=== PATIENT | female | born 1990 | race Caucasian/White ===

== ENCOUNTER 2020-10-30 10:51 | Outpatient (REF) | payer OTHER, SELFPAY | END 2020-10-30 10:52 | disposition home or self-care (01) | LOC: HO.WFDLDS 10:51 | PROVIDERS: Visit Provider Internal Medicine | DX: Z20.822 Contact with and (suspected) exposure to COVID-19 (principal) | CPT/HCPCS: C9803; U0003; U0005 ==

== ENCOUNTER 2022-07-19 09:03 | Emergency (ER) | payer OTHER, SELFPAY ==
[2022-07-19 09:10] VITALS: BP 134/91; PULSE 96; RESP 18; TEMP 35.8; O2SAT 99; BMI 34.5
--- NOTE | 2022-07-19 09:25 | ED_ITS ---
HPI - General Adult General Chief complaint: General Medical Stated complaint: Strep throat Time Seen by Provider: 07/19/22 09:23 Source: patient Mode of arrival: ambulatory Limitations: no limitations History of Present Illness HPI narrative: Patient is a 32 year old assigned female at with no reported medical history presenting to the emergency department today with a sore throat. Patient states that since last night she has had a sore throat. Patient denies any dizziness, lightheadedness, abdominal pain, nausea, vomiting, fever, chills, blurry vision, double vision, loss of vision, chest pain, difficulty breathing, shortness of breath, back pain, night sweats, pain with urination, increased urinary frequency, increased urinary urgency, blood in her urine or stool, syncope or a near syncopal episode, recent trauma or falls, bowel incontinence, bladder incontinence, bowel retention, bladder retention, or any other complaints at this time. Onset (ago): day(s) (1) Severity: mild Severity scale (1-10): 2 Relieving factors: none Exacerbating factors: none Associated symptoms: denies other symptoms Treatments prior to arrival: none Related Data Previous Rx's Medication Instructions Recorded penicillin V potassium 500 mg 500 mg PO BID 10 days #20 tabs 07/19/22 tablet Allergies Allergy/AdvReac Type Severity Reaction Status Date / Time No Known Allergies Allergy Verified 07/19/22 09:09 Review of Systems Constitutional: Constitutional: Reports no additional constitutional complaints, Denies chills, Denies fever(s) and Denies night sweats Eyes: Eyes: Reports no additional eye complaints, Denies blurry vision, Denies change in vision, Denies diplopia, Denies eye discharge, Denies loss of vision and Denies eye pain ENT: Denies dizziness and Reports sore throat Cardiovascular: Cardiovascular: Reports no additional cardiovascular complaints, Denies chest pain, Denies lightheadedness, Denies Loss of Consciousness and Denies dyspnea Respiratory: Respiratory: Reports no additional respiratory complaints and Denies dyspnea Gastrointestinal: Gastrointestinal: Reports no additional gastrointestinal complaints, Denies abdominal pain, Denies melena, Denies hematochezia, Denies change in bowel habits and Denies change in stool character Genitourinary: Genitourinary: Denies hematuria, Denies urinary frequency, Denies dysuria, Denies urinary incontinence, Denies urinary hesitancy and Denies urinary urgency Musculoskeletal: Musculoskeletal: Reports no additional musculoskeletal complaints, Denies numbness and Denies tingling Neurologic: Denies dizziness, Denies loss of vision, Denies numbness and Denies tingling Psychiatric: Psychiatric: Reports no additional psychiatric complaints Endocrine: Endocrine: Reports no additional endocrine complaints Hematologic/Lymphatic: Hematologic/Lymphatic: Reports no additional hematologic/lymphatic complaints Allergic/Immunologic: Allergic/Immunologic: Reports no additional allergic/immunologic complaints PMFSH Past Medical History Attestation statement: The following information was validated with the patient. Source: old records reviewed and nursing notes reviewed Social History Social History Advance Directives: No Advance Directives Information Provided: No Physical Exam ED Vital Signs: Vital Signs - 24 hr 07/19/22 09:10 Temperature 96.4 F L Pulse Rate 96 Respiratory Rate 18 Blood Pressure 134/91 H Pulse Oximetry 99 Oxygen Delivery Method Room Air BMI result Body Mass Index 34.5 Const General: cooperative, no acute distress, alert and awake Nutritional Appearance: well nourished Orientation/consciousness: patient oriented x3 Limitations: no limitations HENMT Head: Yes normal to inspection and Yes atraumatic Ears: hearing grossly normal bilaterally and external ears normal General nose exam: Normal external nose present, no nasal discharge noted and no epistaxis Face and sinus: Yes normal facial exam, No abrasion and No laceration Mouth: Normal oral and palatal mucosa present, no drooling and no muffled voice Throat: Yes posterior oropharynx abnormal (erythema) Eyes General: appearance normal, both eyes and all related structures Periorbital: periorbital findings normal Eyelids: Yes eyelids normal Conjunctivae: conjunctivae normal Pupils: Equal, round and reactive pupils present EOM: EOMs intact bilaterally Neck Neck: Yes normal visual inspection, Yes full ROM and Yes no lymphadenopathy Chest Chest palpation & inspection: normal inspection of the chest Resp Effort & Inspection: normal respiratory effort and able to speak in complete sentences GI Inspection: Yes normal to inspection Neuro General: patient oriented x3 and moves all extremities Cranial nerves: Yes Equal, round and reactive pupils present Cognition (Neuro): normal cognition Motor exam (neuro): 5/5 motor strength present throughout Sensory Exam: Normal double simultaneous stimulation for sensation Coordination: [id number] test normal Extrem General: Yes normal to inspection, Yes full ROM and Yes capillary refill normal Psych Appearance: grossly normal Mental Status: mental status grossly normal Affect: normal affect Attitude: cooperative Thought process: Normal thought process present Thought content: Normal thought content present Insight: Good insight present (Psych) Medical Decision Making Medical Decision Making [facility] Narrative: Patient is a 32 year old assigned female at with no reported medical history presenting to the emergency department today with a sore throat. Patient's physical exam showed posterior pharynx erythema. Patient's strep test was positive. I explained my physical exam findings as well as all test results to the patient. I answered all questions asked by the patient. I stressed the importance of the patient taking her medication as prescribed. I stressed the importance of the patient following up with her primary care provider. I stressed the importance of the patient returning to the emergency department i mmediately if her symptoms were to worsen or if she were to develop any dizziness, shortness of breath, difficulty breathing, chest pain, blurry vision, loss of vision, nausea, vomiting, abdominal pain, fever, chills, back pain, or any other complaints. Patient verbalized agreement and understanding with this treatment plan and discharge. Differential Diagnosis Differential Diagnoses: The differential diagnosis associated with the presentation includes strep pharyngitis Lab Data [facility] Lab Attestation statement: I reviewed the patient's lab results. Labs: Lab Results 07/19/22 07/19/22 Range/Units 09:18 09:18 COVID-19 ([place]) Negative (Negative) COVID-19 Clin Com See Note S. pyogenes GrpA DOTTY Positive A (Negative) Discharge Plan Discharge Clinical Impression: Strep pharyngitis Patient Disposition: Home, Self-Care Instructions: Strep Throat (DC) Additional Instructions: Follow up with your primary care provider. Return to the emergency department immediately if your symptoms worsen or if you develop any dizziness, shortness of breath, difficulty breathing, chest pain, blurry vision, loss of vision, nausea, vomiting, abdominal pain, fever, chills, back pain, or any other complaints. Prescriptions: New penicillin V potassium 500 mg tablet 500 mg PO BID 10 Days Qty: 20 0RF [place]: [facility] [place] (Call to establish and follow up with a primary care provider. If you already have a primary care provider, please follow up with them.) [facility] [place] [facility] [place] [facility]] (Call to establish and follow up with a primary care provider. If you already have a primary care provider, please follow up with them.) [facility] [Provider Group] (Call to establish and follow up with a primary care provider. If you already have a primary care provider, please follow up with them.) Stand Alone Forms: Work/School Release Interventions: ED Discharge Assessment Last Done: 07/19/22 10:11 Discharge Date/Time: 07/19/22 10:11 Print Language: American
[2022-07-19 09:50] LABS: COVID-19 Test Negative (Negative); IDNOW Serial# 55D5AD1C; IDNOW Serial# 6674DD1D; Strep A Nucleic Acid Positive (Negative)
== END 2022-07-19 10:11 | disposition home or self-care (01) ==
PROVIDERS: Emergency Provider Emergency Medicine
DX: J02.0 Streptococcal pharyngitis (principal); Z20.822 Contact with and (suspected) exposure to COVID-19; Z20.828 Contact with and (suspected) exposure to other viral communicable diseases; Z79.899 Other long term (current) drug therapy
CPT/HCPCS: 87635; 87651; 99282; 99283

== ENCOUNTER 2023-08-03 08:48 | Emergency (ER) | payer SELFPAY ==
[2023-08-03 09:03] VITALS: BP 151/86; PULSE 106; RESP 16; TEMP 36.9; O2SAT 97; BMI 34.5
--- NOTE | 2023-08-03 09:10 | ED_ITS ---
HPI - General Adult General Chief complaint: General Medical Stated complaint: Sore throat Time Seen by Provider: 08/03/23 09:10 Source: patient Mode of arrival: ambulatory Limitations: no limitations History of Present Illness HPI narrative: Patient is a 33 year old assigned female at with no reported medical history presenting to the emergency department today with a sore throat and body aches. Patient states that over the last 36 hours she has had a sore throat and body aches. Patient denies any dizziness, lightheadedness, abdominal pain, nausea, vomiting, fever, chills, blurry vision, double vision, loss of vision, chest pain, difficulty breathing, shortness of breath, back pain, night sweats, pain with urination, increased urinary frequency, increased urinary urgency, blood in her urine or stool, syncope or a near syncopal episode, recent trauma or falls, bowel incontinence, bladder incontinence, bowel retention, bladder retention, or any other complaints at this time. Onset (ago): day(s) (2) Severity: mild Severity scale (1-10): 3 Relieving factors: none Exacerbating factors: none Associated symptoms: denies other symptoms Treatments prior to arrival: none Related Data Previous Rx's ?Medication ?Instructions ?Recorded penicillin V potassium 500 mg 500 mg PO BID 10 days #20 tabs 07/19/22 tablet penicillin V potassium 500 mg 500 mg PO BID 10 days #20 tabs 08/03/23 tablet Allergies Allergy/AdvReac Type Severity Reaction Status Date / Time No Known Allergies Allergy Verified 08/03/23 09:04 Review of Systems Constitutional: Constitutional: Reports no additional constitutional complaints, Reports body ache(s), Denies chills, Denies fever(s) and Denies night sweats Eyes: Eyes: Reports no additional eye complaints, Denies blurry vision, Denies change in vision, Denies diplopia, Denies eye discharge, Denies loss of vision and Denies eye pain ENT: Denies dizziness and Reports sore throat Cardiovascular: Cardiovascular: Reports no additional cardiovascular complaints, Denies chest pain, Denies lightheadedness, Denies Loss of Consciousness and Denies dyspnea Respiratory: Respiratory: Reports no additional respiratory complaints and Denies dyspnea Gastrointestinal: Gastrointestinal: Reports no additional gastrointestinal complaints, Denies abdominal pain, Denies melena, Denies hematochezia, Denies change in bowel habits and Denies change in stool character Genitourinary: Genitourinary: Denies hematuria, Denies urinary frequency, Denies dysuria, Denies urinary incontinence, Denies urinary hesitancy and Denies urinary urgency Musculoskeletal: Musculoskeletal: Reports no additional musculoskeletal complaints, Denies numbness and Denies tingling Neurologic: Denies dizziness, Denies loss of vision, Denies numbness and Denies tingling Psychiatric: Psychiatric: Reports no additional psychiatric complaints Endocrine: Endocrine: Reports no additional endocrine complaints Hematologic/Lymphatic: Hematologic/Lymphatic: Reports no additional hematologic/lymphatic complaints Allergic/Immunologic: Allergic/Immunologic: Reports no additional allergic/immunologic complaints [facility] Past Medical History Attestation statement: The following information was validated with the patient. Source: old records reviewed and nursing notes reviewed Social History Social History Advance Directives: No Advance Directives Information Provided: No Physical Exam ED Vital Signs: Vital Signs - 24 hr 08/03/23 09:03 08/03/23 10:25 Temperature 98.5 F 98.5 F Pulse Rate 106 H 106 H Respiratory Rate 16 16 Blood Pressure 151/86 H 151/86 H Pulse Oximetry 97 97 Oxygen Delivery Method Room Air Room Air BMI result Body Mass Index 34.5 Const General: cooperative, no acute distress, alert and awake Nutritional Appearance: well nourished Orientation/consciousness: patient oriented x3 Limitations: no limitations HENCA Head: Yes normal to inspection and Yes atraumatic Ears: hearing grossly normal bilaterally and external ears normal General nose exam: Normal external nose present, no nasal discharge noted and no epistaxis Face and sinus: Yes normal facial exam, No abrasion and No laceration Mouth: Normal oral and palatal mucosa present, no drooling and no muffled voice Throat: Yes abnormal tonsil (bilateral erythema and exudates) Eyes General: appearance normal, both eyes and all related structures Periorbital: periorbital findings normal Eyelids: Yes eyelids normal Conjunctivae: conjunctivae normal Pupils: Equal, round and reactive pupils present EOM: EOMs intact bilaterally Neck Neck: Yes normal visual inspection, Yes full ROM and Yes no lymphadenopathy Chest Chest palpation & inspection: normal inspection of the chest Resp Effort & Inspection: normal respiratory effort and able to speak in complete sentences GI Inspection: Yes normal to inspection Neuro General: patient oriented x3 and moves all extremities Cranial nerves: Yes Equal, round and reactive pupils present Cognition (Neuro): normal cognition Motor exam (neuro): 5/5 motor strength present throughout Sensory Exam: Normal double simultaneous stimulation for sensation Coordination: [id number] test normal Extrem General: Yes normal to inspection, Yes full ROM and Yes capillary refill normal Psych Appearance: grossly normal Mental Status: mental status grossly normal Affect: normal affect Attitude: cooperative Thought process: Normal thought process present Thought content: Normal thought content present Insight: Good insight present (Psych) Medical Decision Making Medical Decision Making [facility] Narrative: Patient is a 33 year old assigned female at with no reported medical history presenting to the emergency department today with a sore throat and body aches. Patient's physical exam was as noted in the physical exam portion of this note. Patient's COVID-19, influenza, and RSV tests were negative. Patient's strep test was positive. I explained my physical exam findings as well as all test results to the patient. I answered all questions asked by the patient. I stressed the importance of the patient taking her medication as prescribed. I stressed the importance of the patient following up with her primary care provider. I stressed the importance of the patient returning to the emergency department immediately if her symptoms were to worsen or if she were to develop any dizziness, shortness of breath, difficulty breathing, chest pain, blurry vision, loss of vision, nausea, vomiting, abdominal pain, fever, chills, back pain, or any other complaints. Patient verbalized agreement and understanding wi th this treatment plan and discharge. Differential Diagnosis Differential Diagnoses: The differential diagnosis associated with the present ation includes Strep pharyngitis COVID-19 Influenza RSV Pharyngitis Admission/Observation Consideration of admission/observation: Escalation of care including admission/observation considered Patient would have been admitted to the hospital had her work up had any findings where hospital admission was appropriate and her clinical presentation warranted hospital admission. Lab Data [facility] Lab Attestation statement: I reviewed the patient's lab results. My interpretation of these results are in the MDM Rationale portion of this note. Labs: Lab Results 08/03/23 Range/Units 09:23 Influenza Type A (PCR) NEGATIVE (Negative) Influenza Type B (PCR) NEGATIVE (Negative) RSV RNA Qual (PCR) NEGATIVE (Negative) SARS-CoV-2 RNA (RT-PCR) NEGATIVE (Negative) S. pyogenes GrpA DOTTY Positive A (Negative) Prescription Management I considered prescription management with: Antibiotic (patient prescribed an antibiotic for strep pharyngitis) Discharge Plan Discharge Clinical Impression: Strep pharyngitis Patient Disposition: Home, Self-Care Instructions: Strep Throat (DC) Additional Instructions: Follow up with your primary care provider. Return to the emergency department immediately if your symptoms worsen or if you develop any dizziness, shortness of breath, difficulty breathing, chest pain, blurry vision, loss of vision, nausea, vomiting, abdominal pain, fever, chills, back pain, or any other complaints. Prescriptions: New penicillin V potassium 500 mg tablet 500 mg PO BID 10 Days Qty: 20 0RF No Action penicillin V potassium 500 mg tablet 500 mg PO BID 10 Days Qty: 20 0RF Referrals: [facility] [place] [facility] [Provider Group] (Call to establish and follow up with a primary care provider. If you already have a primary care provider, please follow up with them.) [facility] [place] [facility] [Provider Group] [facility] [place] [facility] [Provider Group] Stand Alone Forms: Work/School Release Interventions: ED Discharge Assessment Last Done: 08/03/23 10:25 Discharge Date/Time: 08/03/23 10:26 Print Language: Albanian
[2023-08-03 09:39] LABS: IDNOW Serial# 08D9AD1C; Strep A Nucleic Acid Positive (Negative)
[2023-08-03 10:08] LABS: Influenza A PCR NEGATIVE (Negative); Influenza B PCR NEGATIVE (Negative); Resp Syncy Virus RNA Qual PCR NEGATIVE (Negative); SARS COV2 PCR INHOUSE NEGATIVE (Negative)
[2023-08-03 10:25] VITALS: BP 151/86; PULSE 106; RESP 16; TEMP 36.9; O2SAT 97
== END 2023-08-03 10:26 | disposition home or self-care (01) ==
PROVIDERS: Physician Assistant Medical; Emergency Provider Emergency Medicine
DX: J02.0 Streptococcal pharyngitis (principal); J02.9 Acute pharyngitis, unspecified; R52 Pain, unspecified; Z03.818 Encounter for observation for suspected exposure to other biological agents ruled out
CPT/HCPCS: 0241U; 87651; 99282; 99283

== ENCOUNTER 2024-07-31 13:07 | Outpatient (AMB) | payer OTHER, SELFPAY ==
--- NOTE | 2024-07-31 13:10 | A.OFFPC_ITS ---
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: No Is last menstrual period known: Yes Last menstrual period: 07/20/24 Post menopausal: No Patient : No Allergies No Known Allergies Allergy (Verified 07/31/24 13:34) Medication List - Last Reconciled 07/31/24 by Srikanth Stapleton CNP No Known Home Meds Tobacco use date assessed: 07/31/24 Dental Screening Dental Screen Date: 07/31/24 Did you have a dental visit in the last 12 months?: No Did you have a dental problem in the last 6 months where you did not have access to dental care?: No Was dental information given to patient?: Patient has dentist HPI HPI Comments History of Present Illness Details 84-year-old female presents to establish care. Prior PCP? - [facility] Last office visit/CPE/labs - 10 years ago Acute issue(s) - Reports eczema rash to right side her face, back of head, and palm of right hand. She was on two topical treatment for eczema in 2015 with significant improvement - Reports SOB with moderate exertion and fatigue for the past 1 year, and intermittent dizziness upon standing for the past 3-6 months. - Undiagnosed anxiety. She notes that he r symtpoms usually controlled with walking and breathing techniques. - Reports intermittent shooting pain t o her right heel which intensifies while exercising or doing squats. Denies fall, injury, or trauma. - Reports myopia. She wears prescription glasses. Past Medical History - Myopia, sinusitis, eczema, undiagnosed anxiety, depression 2013, 4 cm ovarian cyst (unknown ovary) Surgical History - None Family History - Dad: Diabetes, alcohol abuse, anxiety - Mom: Alcohol abuse - PGM: Breast cancer Social History - Nonsmoker. Does not vape. Does not dri nk. Smokes a bowl of cannabis daily in the evening - Has been making healthy dietary choice s. Exercises routinely. Generally sleep well Health maintenance - Last eye exam was in 2020 - Last dental visit was about a year ago . She has a dental appointment scheduled later this week - Last Tdap was in 2018 - Has not been vaccinated for the flu ; declines vaccination - Last pap smear test was in 2013 with [facility]: Normal. Record not currently available. 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 1. Little interest or pleasure in doing things: not at all 2. Feeling down, depressed, or hopeless: not at all 3. Trouble falling or staying asleep, or sleeping too much: not at all 4. Feeling tired or having little energy: more than half the days 5. Poor appetite or overeating: more than half the days 6. Feeling bad about yourself - or that you are a failure or have let yourself or your family down: not at all 7. Trouble concentrating on things, such as reading the newspaper or watching television: several days 8. Moving or speaking so slowly that other people could have noticed. Or the opposite - being so fidgety or restless that you have been moving around a lot more than usual: not at all 9. Thoughts that you would be better off or of hurting yourself in some way: not at all Total score: 5 Depression Screening Interpretation: Positive Depression Screening Done: Yes 30741 - PHQ-9 Billing: Yes Source: Developed by Drs. Tyrell Tello, Joi Bai, Tello Hu and colleagues, with an educational radha from [employer]. Thrive Questionnaire Date Thrive assessed: 07/31/24 I am a: Patient What is your living situation today?: I have a steady place to live Within the past 12 months, did the food you bought not last and you didn't have the money to get more?: Sometimes True Within the past 12 months, did you worry whether your food would run out before you got money to buy more?: Never true Do you have trouble paying for medicines?: No Do you have trouble getting transportation to medical appointments?: No Do you have trouble paying your heating and electricity bill?: No Do you have trouble taking care of your child, family member or friend?: No Do you have trouble with day-to-day activities such as bathing, preparing meals, shopping, managing finances, etc.?: No Are you currently unemployed and looking for a job?: No Are you interested in more education?: Yes Please select the resources that you would like help with: None Currently or been in a relationship where the following occur: No concerns reported THRIVE Score: 1 AUDIT C Alcohol Use Questionnaire (AUDIT-C) 1. How often do you have a drink containing alcohol?: Never 3. How often do you have six or more drinks on one occasion?: Never Total Score: 0 Score Reviewed/Action Taken: Yes LUIS ALBERTO-7 AMB Questionnaire LUIS ALBERTO-7 Date LUIS ALBERTO - 7 assessed: 07/31/24 Feeling nervous, anxious, or on edge: 1 = Several days Not being able to stop or control worryin = Not at all Worrying too much about different things: 2 = More than half the days Trouble relaxin = More than half the days Being so restless that it is hard to sit still: 1 = Several days Becoming easily annoyed or irritable: 1 = Several days Feeling afraid as if something awful might happen: 0 = Not at all Total LUIS ALBERTO-7 score (0-4 normal; 5-9 mild; 10-14 moderate; 15-21 severe): 7 Source: Developed by Drs. Tyrell Tello, Joi Bai, Tello Hu and colleagues, with an educational radha from [employer]. LUIS ALBERTO-7 Assessment Billing LUIS ALBERTO-7 Assessment Tool: LUIS ALBERTO-7 Assessment 14558 Review of Systems Const Details: Denies chills, Reports fatigue, Denies fever(s), Denies headache(s) and Denies weakness HEENT Denies change in vision, Reports dizziness, Denies headache(s), Denies hearing loss, Denies nasal congestion, Denies sinus pain, Denies sinus pressure and Denies sore throat Card Denies chest pain, Denies lightheadedness, Denies dyspnea and Denies other (palpitations) Resp Denies cough, Reports dyspnea and Denies wheezing GI Denies abdominal pain, Denies melena, Denies hematochezia, Denies change in bowel habits, Denies dyspepsia and Denies nausea Denies hematuria and Denies dysuria Musc Reports pain of right heel, Denies abnormal gait, Denies numbness and Denies tingling Skin/Breast Reports eczema, Denies unusual bruising and Denies wounds Neuro Denies abnormal gait, Reports dizziness, Denies headache(s), Denies memory loss, Denies numbness, Denies Sensory deficit (Neuro), Denies tingling and Denies weakness Psych Reports anxiety, Denies depression and Denies memory loss Endo Denies cold intolerance, Reports fatigue, Denies heat intolerance, Denies polydipsia and Denies polyuria Patrick/Lymph Denies easy bleeding and Denies easy bruising Aller/Immun Denies wheezing Physical exam (Primary Care) Vital Signs: Last Vital Signs Temp 98.1 F 07/31/24 13:17 Pulse 67 07/31/24 13:17 Resp 16 07/31/24 13:17 BP 130/82 07/31/24 13:17 Pulse Ox 98 07/31/24 13:17 Oxygen Delivery Method Room Air 07/31/24 13:17 BMI result Body Mass Index 36.2 Tobacco/Smoking Status: Tobacco use Status Tobacco use date assessed 07/31/24 07/31/24 13:17 Patient Tobacco Use Status Never used Tobacco 07/31/24 13:17 e-Cigarette/Vaping Use Never Used 07/31/24 13:17 PHQ-9: PHQ-9 Score PHQ-9: Total score 5 07/31/24 13:25 Depression Screening Interpretation: Positive Thrive Assessment: Date of Thrive Assessment Date Thrive assessed 07/31/24 07/31/24 13:13 Currently or been in a relationship where the following occur: No concerns reported Const Other: General: no acute distress, well developed, alert and awake Nutritional Appearance: well nourished Orientation/consciousness: patient oriented x3 [facility] Head: Yes normocephalic and Yes atraumatic Ears: hearing grossly normal bilaterally and TM's normal bilaterally General nose exam: Normal external nose present and Normal nares present Mouth: Normal oral and palatal mucosa present and moist mucous membranes Teeth and gingiva: dentition normal Throat: Yes oropharynx normal Eyes Pupils: Equal, round and reactive pupils present and Pupil accommodation reflex normal EOM: EOMs intact bilaterally Neck Neck: Yes normal visual inspection, Yes no lymphadenopathy and Yes trachea midline Thyroid: Thyroid normal Carotids: no bruits Lymphatic: no lymphadenopathy noted Chest Chest palpation & inspection: normal inspection of the chest Resp Effort & Inspection: normal respiratory effort Auscultation: clear to auscultation bilaterally Cardio Rate: regular rate Rhythm: regular rhythm Heart sounds: S1 normal heart sound present, S2 normal heart sound present, no gallops, no murmurs and no rubs Bruits: no abdominal aortic bruits and no carotid bruits GI Palpation (GI): No Abdominal aortic bruit present, Soft to palpation, nontender, No hepatosplenomegaly present and No Rebound tenderness present Auscultation: normal bowel sounds General: Yes no CVA tenderness Back/Spine/Pelvis Back: no CVA tenderness Cervical Spine: cervical ROM normal and No Cervical spine tenderness Thoracic/Lumbar Spine: thoraco-lumbar ROM normal, No pain with thoraco-lumbar ROM, No thoracic spinal tenderness and No lumbar spinal tenderness Skin General: warm and dry. Normal skin color. Normal skin turgor Lesions: no lesions Rashes: Red, thickened, dry skin noted to the right side of face, right lower occiput, and palm of right hand Trauma: no lacerations or abrasions Wounds: no wounds Nails: normal Neuro General: patient oriented x3, gait normal and CN's II-XI intact bilaterally Cranial nerves: Yes Equal, round and reactive pupils present Cognition (Neuro): normal cognition Gait exam (Neuro): Normal gait present Motor exam (neuro): 5/5 motor strength present throughout Sensory Exam: No Sensory deficit (Neuro) Deep tendon reflexes (DTR's): Right patellar reflex intensity grade: 2+ and Left patellar reflex intensity grade: 2+ Extrem General: Yes normal to inspection, No edema and No calf tenderness Psych Appearance: grossly normal Affect: normal affect Attitude: cooperative Thought process: Normal thought process present Coding Level of Care Code New Pt Level 5 (31323) New Pt Prev Care 18-39yr(53528 Diagnoses Normal physical examination, routine Z00.00 Eczema L30.9 Dizziness R42 Shortness of breath R06.02 Fatigue R53.83 Pain of right heel M79.671 Ovarian cyst N83.209 Myopia H52.10 Anxiety F41.9 Obesity (BMI 30-39.9) E66.9 Pap smear for cervical cancer screening Z12.4 Laboratory tests ordered as part of a complete physical exam (CPE) Z00.00 Additional Codes LUIS ALBERTO-7 Assessment Billing - LUIS ALBERTO-7 Assessment Tool: LUIS ALBERTO-7 Assessment 10581 ([id number]) PHQ-9 - 98320 - PHQ-9 Billing: Yes ([id number]) Assessment & Plan Assessment & Plan (1) Normal physical examination, routine: Code(s): Z00.00 - Encounter for general adult medical examination without abnormal findings Category: Medical Plan: No significant functional limitation noted. Continue current treatment regimen. Perform lab work and x-ray and follow-up for a telehealth visit for labs and imaging reviewe in 2 weeks. Return sooner with symptoms or concerns. Verbalized understanding and agreed with the treatment plan. (2) Eczema: Code(s): L30.9 - Dermatitis, unspecified Category: Medical Plan: Reports eczema rash to her face, back of head, and palm of right hand. She was on two topical treatment for eczema in 2016 with significant improvement. Red, thickened, dry skin noted to the right side of face, right lower occiput, and palm of right hand. Triamcinolone acetonide ointment twice daily ordered; advised to use as prescribed. Instructed on the risks, benefits, and potential adverse reactions of the medication. Referred to dermatology. Follow-up with worsening or new signs and symptoms. Verbalized understanding and agreed with the treatment plan. (3) Dizziness: Code(s): R42 - Dizziness and giddiness Category: Medical Plan: Reports SOB with moderate exertion and fatigue for the past 1 year, and intermittent dizziness upon standing for the past 3-6 months. May be related to anemia, thyroid disorder, or vitamin-D deficiency. Advised to change positions slowly to prevent dizziness/lightheadedness. Will check labs and make changes as needed. Encouraged weight loss which may alleviate symptoms. Verbalized understanding and agreed with the plan. (4) Shortness of breath: Code(s): R06.02 - Shortness of breath Category: Medical Plan: Plan as above. (5) Fatigue: Code(s): R53.83 - Other fatigue Category: Medical Plan: Plan as above. (6) Pain of right heel: Code(s): M79.671 - Pain in right foot Category: Medical Plan: Reports intermittent shooting pain to her right heel which intensifies while exercising or doing squats. Denies fall, injury, or trauma. Bone spur is likely. May take Tylenol ibuprofen for pain or discomfort. Encouraged to wear shoes with good support. X-ray ordered. Follow-up as needed. Verbalized understanding and agreed with the plan. (7) Ovarian cyst: Code(s): N83.209 - Unspecified ovarian cyst, unspecified side Category: Medical Plan: Reports 4 cm ovarian cyst (unknown ovary). Plan as above. (8) Myopia: Code(s): H52.10 - Myopia, unspecified eye Category: Medical Plan: She wears prescription glasses. Last eye exam was in 2020. Referred to Ophthalmology for routine eye exam. (9) Anxiety: Code(s): F41.9 - Anxiety disorder, unspecified Category: Medical Plan: Reports undiagnosed anxiety. She notes that her symptoms usually controlled with walking and breathing techniques. PHQ-9 and LUIS ALBERTO-7 scores revealed mild depression and anxiety. Routine exercise encouraged. Follow-up with symptoms or concerns. Verbalized understanding and agreed with treatment plan. (10) Obesity (BMI 30-39.9): Code(s): E66.9 - Obesity, unspecified Category: Medical Plan: She currently weighs 231 lb, BMI is 36.2. Declines referral to wheel borer/dietitian or weight management at this time and notes she will continue to make healthy lifestyle changes. Healthy diet and routine exercise encouraged. Follow-up as needed. Verbalized understanding and agreed with the plan. (11) Pap smear for cervical cancer screening: Code(s): Z12.4 - Encounter for screening for malignant neoplasm of cervix Category: Medical Plan: Last pap smear test was in 2013 with [facility]: Normal. Record not currently available. Referred to [facility] director of distance learning for a pap smear test and ovarial cyst (12) Laboratory tests ordered as part of a complete physical exam (CPE): Code(s): Z00.00 - Encounter for general adult medical examination without abnormal findings Category: Medical Plan: Fasting labs ordered as part of a complete physical exam. Advised to fast for at least 10 hours before getting labs drawn. May drink water Verbalized understanding and agreed with treatment plan. Plan Total time with patient was 75 minutes. 45 minutes with patient and 30 minutes reviewing, coordinating plan of care, and documenting. Orders: Orders Complete Blood Count Auto Diff Today Z00.00 - Encounter for general adult medical examination without abnormal findings Comprehensive [place]. Panel Fast Today Z00.00 - Encounter for general adult medical examination without abnormal findings UA CC w/rflx Micro + Cult Today Z00.00 - Encounter for general adult medical examination without abnormal findings XR foot RT 2V Today M79.671 - Pain in right foot Lipid Panel Today Z00.00 - Encounter for general adult medical examination without abnormal findings Microalbumin, Random (w Creat) Today Z00.00 - Encounter for general adult medical examination without abnormal findings TSH reflex Free T4 Today Z00.00 - Encounter for general adult medical examination without abnormal findings Vitamin D 25-OH Total Today Z00.00 - Encounter for general adult medical examination without abnormal findings Referrals [facility] Referral N83.209 - Unspecified ovarian cyst, unspecified side, Z12.4 - Encounter for screening for malignant neoplasm of cervix Ophthalmology Referral H52.10 - Myopia, unspecified eye Dermatology Referral L30.9 - Dermatitis, unspecified Medications: New triamcinolone acetonide 0.1% 1 appl topical BID 80 grams 3RF Discontinued penicillin V potassium Discontinued Reason: Patient no longer taking 500 mg PO BID 10 days 20 tabs 0RF penicillin V potassium Discontinued Reason: Patient no longer taking 500 mg PO BID 10 days 20 tabs 0RF
[2024-07-31 13:17] VITALS: BP 130/82; PULSE 67; RESP 16; TEMP 36.7; O2SAT 98; BMI 36.2
== END 2024-07-31 14:06 | disposition home or self-care (01) ==
LOC: HO.HMCFM 13:08
PROVIDERS: PCP Nurse Practitioner Family; Visit Provider Nurse Practitioner Family
DX: Z00.00 Encounter for general adult medical examination without abnormal findings (principal); R42 Dizziness and giddiness; E66.9 Obesity, unspecified; Z68.36 Body mass index [BMI] 36.0-36.9, adult; R06.02 Shortness of breath; L30.9 Dermatitis, unspecified; R53.83 Other fatigue; M79.671 Pain in right foot; N83.209 Unspecified ovarian cyst, unspecified side; H52.10 Myopia, unspecified eye; F41.9 Anxiety disorder, unspecified

== ENCOUNTER → 2024-07-31 13:07 | Outpatient (BNVA) | payer OTHER, SELFPAY | PROVIDERS: PCP Nurse Practitioner Family; Visit Provider Nurse Practitioner Family | DX: Z00.00 Encounter for general adult medical examination without abnormal findings (principal); Z76.89 Persons encountering health services in other specified circumstances; L30.9 Dermatitis, unspecified; R42 Dizziness and giddiness; R06.02 Shortness of breath; R53.83 Other fatigue; M79.671 Pain in right foot; N83.209 Unspecified ovarian cyst, unspecified side; H52.10 Myopia, unspecified eye; F41.9 Anxiety disorder, unspecified; E66.9 Obesity, unspecified; Z68.36 Body mass index [BMI] 36.0-36.9, adult | CPT/HCPCS: 96127 ==

== ENCOUNTER 2024-08-01 08:56 | Outpatient (REF) | payer OTHER, SELFPAY ==
[2024-08-01 10:59] LABS: MANUAL DIFF FLAG NO
[2024-08-01 11:05] LABS: Appearance Urine Clear; Color Urine Yellow; Glucose Urine UA Negative (Negative); Leukocyte Esterase Urine Trace (Negative); Nitrite Urine Negative (Negative); PH 7.5 (5.0-9.0); UMIC TRIGGER UACC YES; Urine Blood Negative (Negative); Urine Ketones Negative (Negative); Urine Protein Negative (Neg-Trace)
[2024-08-01 11:06] LABS: Basophils Absolute Auto 0.1 X10*3/uL (0.0-0.2); Basophils Percent Auto 0.7 % (0-2); Eosinophils Absolute Auto 0.2 X10*3/uL (0.0-0.4); Eosinophils Percent Auto 2.5 % (0-4); Hemoglobin 12.8 g/dl (12.0-16.0); Imm Gran Abs Auto 0.03 X10*3/uL (0.00-0.03); Imm Gran Pct Auto 0.4 % (0.0-0.4); Lymphocytes Absolute Auto 2.4 X10*3/uL (1.2-4.9); Lymphocytes Percent Auto 34.4 % (20-40); Mean Corpuscular HGB Conc 32.8 g/dl (31.0-35.0); Mean Corpuscular Hemoglobin 28.1 pg (27.0-33.0); Mean Corpuscular Volume 85.7 fL (80.0-98.0); Mean Platelet Volume 10.4 fL (9.4-12.3); Monocytes Absolute Auto 0.5 X10*3/uL (0.1-1.2); Monocytes Percent Auto 6.6 % (2-11); Neutrophils Absolute Auto 3.8 x10*3/uL (2.0-8.3); Neutrophils Percent Auto 55.4 % (45-73); Platelet Count 342 X10*3/uL (160-400); Red Blood Count 4.55 X10*6/uL (4.20-5.50); White Blood Count 6.9 X10*3/uL (4.8-10.8)
[2024-08-01 11:19] LABS: Bacteria Urine None Seen (None Seen); Hyaline Casts Urine 0-2 /LPF (0-2); RBC Urine 0-2 /HPF (0-2); Squamous Epithelial Cell Urine 0-2 /HPF (0-2); WBC Urine 0-5 /HPF (0-5)
[2024-08-01 11:28] LABS: Creatinine Urine 34.23 mg/dL; Microalbum/Creatinine Ratio Ur 14.6 ug/mg cr (<30)
[2024-08-01 11:44] LABS: Alanine Aminotransferase 59 U/L (0-31); Albumin Level 3.9 g/dL (3.5-5.0); Alkaline Phosphatase 74 U/L (39-117); Anion Gap 10 (12-20); Aspartate Amino Transferase 35 U/L (5-31); Bilirubin Total 0.2 mg/dL (0.0-1.0); Blood Urea Nitrogen 8 mg/dL (9-16); Calcium 8.8 mg/dL (8.4-10.2); Carbon Dioxide 25 mmol/L (22-29); Chloride 107 mmol/L (96-108); Cholesterol 167 mg/dL (<200); Estimated Glomerular Filt Rate > 60; Glucose Fasting 102 mg/dL (60-99); HDL Cholesterol 54 mg/dL (>40); LDL Cholesterol Calculated 105 mg/dL (<100); Potassium 4.1 mmol/L (3.3-5.1); Sodium 138 mmol/L (135-145); Total Protein 6.7 g/dL (6.5-8.0); Triglycerides 41 mg/dL (<150)
[2024-08-01 11:45] LABS: TSH reflex Free T4 1.21 uIU/mL (0.32-4.0); Vitamin D 25-OH Total 28.5 ng/mL (>30)
== END 2024-08-01 08:57 | disposition home or self-care (01) ==
LOC: HO.WFDLDS 08:56
PROVIDERS: Visit Provider Nurse Practitioner Family
DX: Z00.00 Encounter for general adult medical examination without abnormal findings (principal); Z13.6 Encounter for screening for cardiovascular disorders
CPT/HCPCS: 36415; 80053; 80061; 81001; 81003; 82043; 82306; 82570; 84443; 85025

== ENCOUNTER 2024-08-03 | Outpatient (REF) | payer OTHER, SELFPAY ==
--- NOTE | ~2024-08-03 | XR_ITS ---
EXAMINATION: XR FOOT 1-2 VIEWS RIGHT HISTORY: M79.671 - Pain in right foot COMPARISON: There are no prior studies available for comparison. FINDINGS: Three views of the right foot are submitted. Osseous mineralization is normal. There is no fracture or dislocation. There is mild degenerative change of the 1st MTP joint with joint space narrowing and osteophyte formation. The remaining joint spaces are maintained. There is possible irregularity of the talar dome on the oblique view which is not confirmed on the additional views. The soft tissues are unremarkable. XR/XR foot RT 2V IMPRESSION: 1. Mild degenerative change of the 1st MTP joint. 2. Possible irregularity of the talar dome seen on one view. Dedicated views of the right ankle are recommended. Electronically signed by: Tyrell Lara MD 08/06/2024 07:46 AM EDT
== END 2024-08-03 00:01 | disposition home or self-care (01) ==
LOC: HO.XRAY
PROVIDERS: PCP Nurse Practitioner Family; Visit Provider Nurse Practitioner Family
DX: M79.671 Pain in right foot (principal)
CPT/HCPCS: 73620

== ENCOUNTER → 2024-08-03 16:19 | Outpatient (BNV) | payer OTHER, SELFPAY | PROVIDERS: PCP Nurse Practitioner Family; Visit Provider Radiology Diagnostic Radiology | DX: M79.671 Pain in right foot (principal) | CPT/HCPCS: 73620 ==

== ENCOUNTER 2024-08-15 11:23 | Outpatient (REF) | payer OTHER, SELFPAY ==
[2024-08-20 14:09] LABS: HPV Genotype 16 Negative (Negative); HPV Genotype 18 Negative (Negative); HPV High Risk Negative (Negative)
== END 2024-08-15 11:24 | disposition home or self-care (01) ==
LOC: HO.LNP 11:23
PROVIDERS: PCP Nurse Practitioner Family; Visit Provider Advanced Practice Midwife
DX: Z01.419 Encounter for gynecological examination (general) (routine) without abnormal findings (principal)
CPT/HCPCS: 87626; 88175

== ENCOUNTER 2024-08-15 11:23 | Outpatient (AMB) | payer OTHER, SELFPAY ==
[2024-08-15 11:26] VITALS: BP 110/72; BMI 36.0
--- NOTE | 2024-08-15 11:26 | MHC.OFFVIS ---
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 Limited records- history of ovarian teratoma 2017, no follow up since. Has a sharp pain on the right side w/movement when turning over at night x 3months. Regular monthly HMB 2/5d, w/clots x 6-12 months. Has bilateral breast pain, uncertain if it is premenstrually. She denies vaginal itching or irritation. STI screening offered; she accepts. She tries to eat healthy and stays active with exercise. Denies family history of ovarian or colon cancer. FH-breast cancer. Interested in consult for BRCA testing. Last pap smear 2018, negative. Labs 07/2024: TSH-1.21, H/H-12.8/39. 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, 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 Current occupational exposures/hazards: No Cognitive needs: No Hearing needs: No Vision needs: Yes Female Reproductive History Menstrual Duration of menses: 3-5 days (clots) Date of last menstrual period: 07/20/24 control method: none Total pregnancies: 4 Full term: 2 Number of Living Children: 2 Ab induced: 2 Review of Systems Const All systems reviewed & are unremarkable except as noted in HPI and below Reports as per HPI Eyes Reports no additional complaints ENT Reports no additional complaints Card Reports no additional complaints Resp Reports no additional complaints GI Reports as per HPI and Reports no additional complaints Reports as per HPI Musc Reports no additional complaints Skin/Breast Reports as per HPI Neuro Reports no additional complaints Psych Reports no additional complaints Endo Reports no additional complaints Patrick/Lymph Reports no additional complaints Aller/Immun Reports no additional complaints Physical Exam Vital Signs: Last Vital Signs BP 110/72 08/15/24 11:26 BMI result Body Mass Index 36.0 Const General: cooperative, healthy appearing, no acute distress, well developed and alert Orientation/consciousness: patient oriented x3 HEENT Head: Yes normal to inspection Eyes General: appearance normal, both eyes and all related structures Neck Neck: Yes normal visual inspection Thyroid: Thyroid normal Chest Chest palpation & inspection: normal inspection of the chest and other (no puckering, dimpling, peau de orange, retraction, discharge, masses) Breast/axilla inspection: normal inspection of the breasts Breast/axilla palpation: normal palpation of the breasts Resp Effort & Inspection: normal respiratory effort GI Inspection: Yes normal to inspection Palpation (GI): Soft to palpation Rectal Exam - Female: deferred General: Yes bladder normal to palpation External Female Exam: normal external appearance and normal appearance of the urethra Speculum Exam - Vagina: normal appearance of the vagina, normal palpation and normal vaginal discharge Speculum Exam - Cervix: normal appearance of the cervix, normal palpation, Cervical mass present (Small flat cervical polyp) and Other cervical findings present (Bled slightly with Pap) Bimanual exam- vagina & uterus: normal bimanual exam, normal palpation, uterine size normal, bladder normal to palpation, normal palpation and non-tender Bimanual Exam- Adnexa, other: no masses Skin General skin exam: no rashes or lesions noted Rashes: no rashes Neuro General: patient oriented x3 Cognition (Neuro): normal cognition Extrem General: Yes normal to inspection Psych Attitude: cooperative Thought process: Normal thought process present Assessment & Plan Assessment & Plan (1) Encounter for well woman exam with routine gynecological exam: Code(s): Z01.419 - Encounter for gynecological examination (general) (routine) without abnormal findings Category: Medical Plan: Discussed: Current recommendations for pap smears per ASCCP guidelines. Pap smear obtained., GC chlamydia and BV panel obtained await results for plan of care. Breast awareness and periodic breast exams. Maintain a healthy lifestyle including a well balanced diet and routine exercise. Declines control is open to a future . Advised to start vitamins or multivitamins with folic acid for the prevention of neural tube defects. Patient verbalizes understanding and agrees to the plan of care. She was given opportunity to ask questions and all questions were answered to the best of my ability. RTO in one year for annual pediatric np examination. This note is constructed using voice recognition software. While every effort has been made to ensure accuracy, deck engine operator errors may have been included. (2) Cervical polyp: Code(s): N84.1 - Polyp of cervix uteri Category: Medical Plan: Discussed: Cervical polyp on exam today, may contribute to heavy or unscheduled bleeding, recommend removal. Anticipatory guidance for removal reviewed. Schedule polypectomy appointment. The patient expressed understanding and agreement with the plan of care. All of her questions and concerns were addressed to the best of my ability. (3) Abnormal uterine bleeding (AUB): Code(s): N93.9 - Abnormal uterine and vaginal bleeding, unspecified Category: Medical Plan: Workup for heavy menstrual bleeding including a pelvic ultrasound possible endometrial biopsy, await ultrasound findings for plan of care. Appointment to discuss ultrasound and polypectomy combined we will be booked. The patient expressed understanding and agreement with the plan of care. All of her questions and concerns were addressed to the best of my ability. (4) Family history of breast cancer: Code(s): Z80.3 - Family history of malignant neoplasm of breast Category: Medical Plan: Reviewed self-breast exam. Discuss cyclic breast pain. Patient agrees to observe cycle of pain for now and report any concerns. Referral for genetics counseling placed. The patient expressed understanding and agreement with the plan of care. All of her questions and concerns were addressed to the best of my ability. (5) Teratoma of left ovary: Code(s): D27.1 - Benign neoplasm of left ovary Category: Medical Plan: Reviewed a copy of ultrasound from 2018- 3.1 x 3.0 x 2.6cm ovoid heterogeneously hyperechoic intraovarian mass, advised to follow up on this with ultrasound and pending results, the workup may include more detailed studies with an MRI or CT scan and a referral to [facility] for any surgical consults. The patient expressed understanding and agreement with the plan of care. All of her questions and concerns were addressed to the best of my ability. Appointment follow up to be scheduled to discuss results and plan of care. Plan Total time I personally spent on visit and management today: ?25 minutes. Time spent included review of pertinent office notes in the electronic health record; review of laboratory and imaging results; review of personal family medical history; performing physical exam; discussing diagnosis and plan of care with the patient; documenting the encounter in the EMR. This note is constructed using voice recognition software. While every effort has been made to ensure accuracy, deck engine operator errors may have been included. Orders: Orders HPV High risk Today Z01.419 - Encounter for gynecological examination (general) (routine) without abnormal findings Pap Smear Today Z01.419 - Encounter for gynecological examination (general) (routine) without abnormal findings Bacterial Vaginosis Panel Today N93.9 - Abnormal uterine and vaginal bleeding, unspecified CT NG by PCR Today N93.9 - Abnormal uterine and vaginal bleeding, unspecified US pelvic and transvaginal Today N83.209 - Unspecified ovarian cyst, unspecified side, N84.1 - Polyp of cervix uteri, N93.9 - Abnormal uterine and vaginal bleeding, unspecified Referrals Breast Surgery Referral Z80.3 - Family history of malignant neoplasm of breast Coding Level of Care Code New Pt Prev Care 18-39yr([id number] Diagnoses Encounter for well woman exam with routine gynecological exam Z01.419 Cervical polyp N84.1 Abnormal uterine bleeding (AUB) N93.9 Family history of breast cancer Z80.3 Teratoma of left ovary D27.1
== END 2024-08-15 12:03 | disposition home or self-care (01) ==
LOC: HO.HWS 11:23
PROVIDERS: PCP Nurse Practitioner Family; Visit Provider Advanced Practice Midwife
DX: Z01.419 Encounter for gynecological examination (general) (routine) without abnormal findings (principal); N84.1 Polyp of cervix uteri; N93.9 Abnormal uterine and vaginal bleeding, unspecified; Z80.3 Family history of malignant neoplasm of breast; D27.1 Benign neoplasm of left ovary
CPT/HCPCS: 99385; 99459

== ENCOUNTER 2024-08-15 11:52 | Outpatient (REF) | payer OTHER, SELFPAY ==
[2024-08-15 17:29] LABS: Bacterial Vaginosis PCR NEGATIVE (Negative); Candida Group PCR NOT DETECTED (Not Detect); Candida glab krusei PCR NOT DETECTED (Not Detect); Trichomonas vaginalis PCR NOT DETECTED (Not Detect)
[2024-08-15 18:01] LABS: CT PCR NOT DETECTED (Not Detect.); NG PCR NOT DETECTED (Not Detect.)
== END 2024-08-15 11:53 | disposition home or self-care (01) ==
LOC: HO.LAB 11:52
PROVIDERS: Visit Provider Advanced Practice Midwife
DX: Z01.419 Encounter for gynecological examination (general) (routine) without abnormal findings (principal); N93.9 Abnormal uterine and vaginal bleeding, unspecified; Z20.2 Contact with and (suspected) exposure to infections with a predominantly sexual mode of transmission
CPT/HCPCS: 81515; 87491; 87591

== ENCOUNTER 2024-08-24 10:26 | Outpatient (AMB) | payer OTHER, SELFPAY ==
--- NOTE | 2024-08-24 09:12 | A.OFFPC_ITS ---
Intake Visit Reasons: Telehealth 2-3 wks labs review Intake Note: June presents for a telehealth appointment this morning to go over her most recent lab results. Allergies No Known Allergies Allergy (Verified 08/24/24 10:21) Tobacco use date assessed: 08/24/24 Dental Screening Dental Screen Date: 08/24/24 Did you have a dental visit in the last 12 months?: No Did you have a dental problem in the last 6 months where you did not have access to dental care?: No Was dental information given to patient?: Patient has dentist HPI HPI Comments History of Present Illness Details 34-year-old female presents for a tele alth visit for review of recent labs and imaging results. She continues to experience intermittent pain of the right heel. Her symptoms occurs at least twice weekly. She notes prolonged standing daily. She has not been taking medications for her symptoms. She denies acute symptoms at this time. [facility] Medical History (Updated 08/24/24 @ 15:54 by Srikanth Stapleton CNP) Teratoma of left ovary Dermoid cyst of left ovary Abnormal uterine bleeding (AUB) Cervical polyp Family history of breast cancer Anxiety Eczema Sinusitis Family History Father Alcohol abuse FH: mental illness Diabetes Mother Alcohol abuse Paternal Grandmother Breast cancer Social History (Updated 08/24/24 @ 10:21 by Ольга Loco MA) Housing: House Alcohol intake: never Patient Tobacco Use Status: Never used Tobacco e-Cigarette/Vaping Use: Never Used Second Hand Smoke Exposure: Yes Substance Use Type: Marijuana service: No Current occupational status: employed 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, 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 Current occupational exposures/hazards: No Cognitive needs: No Hearing needs: No Vision needs: Yes Questionnaire Thrive Questionnaire Date Thrive assessed: 07/24/24 I am a: Patient What is your living situation today?: I have a steady place to live Within the past 12 months, did the food you bought not last and you didn't have the money to get more?: Sometimes True Within the past 12 months, did you worry whether your food would run out before you got money to buy more?: Never true Do you have trouble paying for medicines?: No Do you have trouble getting transportation to medical appointments?: No Do you have trouble paying your heating and electricity bill?: No Do you have trouble taking care of your child, family member or friend?: No Do you have trouble with day-to-day activities such as bathing, preparing meals, shopping, managing finances, etc.?: No Are you currently unemployed and looking for a job?: No Are you interested in more education?: Yes Please select the resources that you would like help with: None Currently or been in a relationship where the following occur: No concerns reported THRIVE Score: 1 AUDIT C Alcohol Use Questionnaire (AUDIT-C) 3. How often do you have six or more drinks on one occasion?: Never Total Score: 0 LUIS ALBERTO-7 AMB Questionnaire LUIS ALBERTO-7 Date LUIS ALBERTO - 7 assessed: 07/31/24 Source: Developed by Drs. Tyrell Tello, Joi Bai, Tello Hu and colleagues, with an educational radha from [employer]. Review of Systems Const Details: Denies chills, Denies fatigue, Denies fever(s), Denies headache(s) and Denies weakness Cardiac Denies chest pain, Denies claudication, Denies leg edema, Denies lightheadedness, Denies palpitations, Denies dyspnea, Denies dyspnea on exertion, Denies orthopnea and Denies other (Loss of consciousness) Resp Denies cough, Denies excessive phlegm production, Denies dyspnea, Denies dyspnea on exertion, Denies snoring and Denies wheezing Musc: Reports intermittent chronic right heel pain Physical exam (Primary Care) Tobacco/Smoking Status: Tobacco use Status Tobacco use date assessed 08/24/24 08/24/24 10:22 Patient Tobacco Use Status Never used Tobacco 08/24/24 10:21 e-Cigarette/Vaping Use Never Used 08/24/24 10:21 Thrive Assessment: Date of Thrive Assessment Date Thrive assessed 07/24/24 08/24/24 09:13 Currently or been in a relationship where the following occur: No concerns reported Const Other: Patient is alert oriented x3 Telehealth Telehealth Telehealth Platform: Telephone Location of provider rendering services: practice address Location of patient: address on file Patient Identification confirmed using: Name, : Yes Telehealth method: voice only Patient verbally consented to treatment: Yes Patient verbally consented to billing insurance company: Yes Patient informed of any privacy concerns related to visit: Yes Coding Level of Care Code Tele Est Pt Level 3 (27760) Diagnoses Transaminitis R74.01 Elevated fasting glucose R73.01 Vitamin D deficiency E55.9 Elevated LDL cholesterol level E78.00 Pain of right heel M79.671 Time Spent (min) 15 Assessment & Plan Assessment & Plan (1) Transaminitis: Code(s): R74.01 - Elevation of levels of liver transaminase levels Category: Medical Plan: Recent AST and ALT levels are slightly elevated, 35 and 59 respectively. Likely due to poor diet or obesity. Routine exercise and healthy diet, including low-fat encouraged. Fast for 10-12 hours, may drink water, and perform blood work a few days before next visit. Follow-up for telehealth visit in 2 months. Return sooner with symptoms or concerns. Verbalized understanding and agreed with the plan. (2) Elevated fasting glucose: Code(s): R73.01 - Impaired fasting glucose Category: Medical Plan: Recent fasting glucose is slightly elevated, 102. Healthy diet and routine exercise encouraged. Will recheck fasting glucose and make changes as needed. Verbalized understanding and agreed with the plan. (3) Vitamin D deficiency: Code(s): E55.9 - Vitamin D deficiency, unspecified Category: Medical Plan: Recent vitamin-D level is slightly low, 28.5. Vitamin D3 25 mcg daily ordered; advised to take as prescribed. Informed that the sun is a good source of vitamin-D. Will recheck vitamin-D level in 2 months. Verbalized understanding and agreed with the plan. (4) Elevated LDL cholesterol level: Code(s): E78.00 - Pure hypercholesterolemia, unspecified Category: Medical Plan: Recent LDL level is slightly elevated, 105. Triglyceride, total cholesterol, and HDL levels are normal. Advised to limit foods high in saturated fat and avoid foods high in trans fat. Routine exercise encouraged. Will monitor lipid panel level annually or if presents with related symptoms or concerns. Verbalized understanding and agreed with the plan. (5) Pain of right heel: Code(s): M79.671 - Pain in right foot Category: Medical Plan: She continues to experience intermittent pain of the right heel. Her symptoms occurs at least twice weekly. She notes prolonged standing daily. She has not been taking medications for her symptoms. She denies acute symptoms at this time. Recent x-ray of the right foot revealed the following: IMPRESSION: 1. Mild degenerative change of the 1st MTP joint. 2. Possible irregularity of the talar dome seen on one view. Dedicated views of the right ankle are recommended. Naproxen 500 mg twice daily ordered; advised to take as prescribed and with foods. Instructed on the risks, benefits, and potential adverse reactions of the medication. Encouraged to avoid prolonged standing. Follow-up with worsening or new symptoms. May refer to orthopedics. Verbalized understanding and agreed with the plan. Orders: Orders Vitamin D 25-OH Total 2 Months E55.9 - Vitamin D deficiency, unspecified Liver Panel 2 Months R74.01 - Elevation of levels of liver transaminase levels Glucose Fasting 2 Months R73.01 - Impaired fasting glucose Medications: New naproxen Take with food 500 mg PO BID PRN 60 tabs 1RF pain cholecalciferol (vitamin D3) 25 mcg PO DAILY 90 days 90 tabs 3RF
== END 2024-08-24 14:17 | disposition home or self-care (01) ==
LOC: HO.HMCFM 10:26
PROVIDERS: PCP Nurse Practitioner Family; Visit Provider Nurse Practitioner Family
DX: R74.01 Elevation of levels of liver transaminase levels (principal); R73.01 Impaired fasting glucose; E55.9 Vitamin D deficiency, unspecified; E78.00 Pure hypercholesterolemia, unspecified; M79.671 Pain in right foot

== ENCOUNTER → 2024-08-24 10:26 | Outpatient (BNVA) | payer OTHER, SELFPAY | PROVIDERS: PCP Nurse Practitioner Family; Visit Provider Nurse Practitioner Family | DX: M79.671 Pain in right foot (principal); E78.00 Pure hypercholesterolemia, unspecified; E55.9 Vitamin D deficiency, unspecified; R73.01 Impaired fasting glucose; R74.01 Elevation of levels of liver transaminase levels | CPT/HCPCS: 98967 ==

== ENCOUNTER 2024-09-27 09:38 | Outpatient (AMB) | payer OTHER, SELFPAY ==
--- NOTE | 2024-09-27 09:42 | A.OFFVIS_ITS ---
Vital Signs 09/27/24 09:52 Height 5 ft 7 in Weight 229 lb BMI 35.9 BP 129/76 Blood Pressure Location Lt brachial Position Sitting Pulse 77 Intake Visit Reasons: Family history of malignant neoplasm of breast Intake Note: Patient is seen in office for family history of malignant neoplasm of the breast and possible genetic testing. Pt c/o: random pain in the bilateral breast, not related to menstrual cycle, feels lumps but unsure what is looking for, no prior mammogram or ultrasound, fm hx of paternal grandmother breast cancer, yes to breast feeding with no complication, no prior breast sugeries Ledger Poster Required: No Underground Bolting Machine Operator: Underground Bolting Machine Operator Present Accompanied by: Self / Same As Patient Allergies No Known Allergies Allergy (Verified 09/27/24 09:54) HPI Comments Details: 34-year-old female patient presenting for high-risk for breast cancer evaluation. She reports a family history of breast cancer in her paternal grandmother who was 72 but was diagnosed with stage IV breast cancer at that point. She is uncertain about her mother because her mother refuses to be evaluated by a physician in his now undergone breast evaluation. The patient denies any current breast symptoms other than some occasional stinging which occurs randomly in both breasts does not seem to be related to her cycle. Menarche was the age of 12, she is with 2 induced ABs, her last menstrual period was 09/10/2024. Cycles have been heavy with clots and she was recently in determined to have a cervical polyp which will be removed. She is also found to have a teratoma in the left ovary which is being evaluated by ultrasound. No other members of her family have undergone genetic testing. She has never undergone mammogram and she has had no previous breast biopsies or other breast surgery. She has no known Ashkenazi Taoism heritage. [facility] Medical History Teratoma of left ovary Dermoid cyst of left ovary Abnormal uterine bleeding (AUB) Cervical polyp Family history of breast cancer Anxiety Eczema Sinusitis Family History Father Alcohol abuse FH: mental illness Diabetes Mother Alcohol abuse Paternal Grandmother Breast cancer Social History Housing: House Alcohol intake: never Patient Tobacco Use Status: Never used Tobacco e-Cigarette/Vaping Use: Never Used Second Hand Smoke Exposure: Yes Use of substances other than those prescribed or required for medical reasons: Yes Substance Use Type: Marijuana service: No Current occupational status: employed 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, 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 Current occupational exposures/hazards: No Cognitive needs: No Hearing needs: No Vision needs: Yes Female Reproductive History Menstrual Age of Menarche: 12 Date of last menstrual period: 09/10/24 Total pregnancies: 4 Full term: 2 Number of Living Children: 2 Ab induced: 2 Review of Systems Const All systems reviewed & are unremarkable except as noted in HPI and below Physical Exam Const General: cooperative and no acute distress Nutritional Appearance: well nourished Orientation/consciousness: patient oriented x3 Limitations: no limitations HEENT Head: Yes normocephalic and Yes atraumatic Ears: hearing grossly normal bilaterally Chest Other: Left breast: No skin change, no nipple retraction, no nipple discharge, no palpable mass, no enlarged lymph nodes. Right breast: No skin change, no nipple retraction, no nipple discharge, no palpable mass, no enlarged lymph nodes Resp Effort & Inspection: normal respiratory effort, no audible wheezes, no cough and no respiratory distress Cardio Jugular venous distension: no JVD GI Inspection: Yes normal to inspection Skin Other: Warm, dry, no rash Neuro General: patient oriented x3 Extrem General: Yes no clubbing, cyanosis or edema Assessment & Plan Assessment & Plan (1) Family history of breast cancer: Code(s): Z80.3 - Family history of malignant neoplasm of breast Category: Medical Plan 34-year-old female patient with a family history of breast cancer in her paternal grandmother and an unknown history of her mother were mother's family making adequate risk assessment difficult. Examination today reveals no suspicious findings in either breast. She has not previously undergone evaluation with mammogram. I reviewed the procedure for genetic testing and she wishes to proceed. This will be performed today and the results reviewed in approximately 5-6 weeks. She expressed understanding and agrees with the plan. Coding Level of Care Code New Pt Level 4 (96729) Diagnoses Family history of breast cancer Z80.3
[2024-09-27 09:52] VITALS: BP 129/76; PULSE 77; BMI 35.9
== END 2024-09-27 10:27 | disposition home or self-care (01) ==
LOC: HO.HGS 09:39
PROVIDERS: PCP Nurse Practitioner Family; Visit Provider Surgery
DX: Z80.3 Family history of malignant neoplasm of breast (principal)
CPT/HCPCS: 99204

== ENCOUNTER 2024-10-02 11:20 | Outpatient (REF) | payer OTHER, SELFPAY ==
--- NOTE | ~2024-10-02 | US_ITS ---
CLINICAL HISTORY: N83.209 - Unspecified ovarian cyst, unspecified side Transabdominal and transvaginal pelvic ultrasound Comparison: None Findings: Uterus 10.4 x 4.4 x 6.0 cm. Endometrium 1.3 cm. No significant free fluid noted. Right ovary 2.2 x 2.2 x 2.4 cm. No focal abnormality. Left ovary 5.2 x 3.2 x 3.3 cm. 3.0 x 3.1 cm dermoid cyst adjacent to the ovary. This contains a large component of fat. 1.8 cm dominant follicle also noted. Impression: Left adnexal dermoid cyst Otherwise unremarkable This document has been electronically signed by: Skinny Palomares MD on 10/02/2024 22:22:51
== END 2024-10-02 11:21 | disposition home or self-care (01) ==
LOC: HO.US 11:20
PROVIDERS: PCP Nurse Practitioner Family; Visit Provider Advanced Practice Midwife
DX: N83.209 Unspecified ovarian cyst, unspecified side (principal); N84.1 Polyp of cervix uteri; N93.9 Abnormal uterine and vaginal bleeding, unspecified
CPT/HCPCS: 76830; 76856

== ENCOUNTER → 2024-10-02 11:22 | Outpatient (BNV) | payer OTHER, SELFPAY | PROVIDERS: PCP Nurse Practitioner Family; Visit Provider Radiology Diagnostic Radiology | DX: D27.1 Benign neoplasm of left ovary (principal) | CPT/HCPCS: 76830; 76856 ==

== ENCOUNTER 2024-10-16 08:50 | Outpatient (AMB) | payer OTHER, SELFPAY ==
[2024-10-16 08:55] VITALS: BP 118/78; BMI 35.9
--- NOTE | 2024-10-16 08:55 | MHC.OFFVIS ---
Vital Signs 10/16/24 08:55 Height 5 ft 7 in Weight 229 lb BMI 35.9 BP 118/78 Blood Pressure Location Rt brachial Position Sitting Intake Visit Reasons: US follow up/Polypectomy Medicaid Service Coordinator Required: No Elevator Repairer: Elevator Repairer Present Allergies No Known Allergies Allergy (Verified 10/16/24 09:04) Medication List - Last Reconciled 10/16/24 by Aliza Crowley LPN cholecalciferol (vitamin D3) 25 mcg PO DAILY 90 days naproxen 500 mg PO BID PRN triamcinolone acetonide 0.1% 1 appl topical BID Is last menstrual period known: Yes Last menstrual period: 10/07/24 Post menopausal: No Patient : No Do you need a note to return to daycare/school/sports/work: No HPI Comments Details: Patient is here today for a follow up ultrasound and polypectomy procedure. History of left-sided pelvic pain. Ultrasound results indicate 3.1cm left dermoid cyst. 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, 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 Current occupational exposures/hazards: No Cognitive needs: No Hearing needs: No Vision needs: Yes Female Reproductive History Menstrual Age of Menarche: 12 Duration of menses: 3-5 days Date of last menstrual period: 10/07/24 Review of Systems Const All systems reviewed & are unremarkable except as noted in HPI and below Physical Exam Vital Signs: Last Vital Signs BP 118/78 10/16/24 08:55 BMI result Body Mass Index 35.9 Const General: cooperative, healthy appearing and no acute distress Orientation/consciousness: patient oriented x3 GI Inspection: Yes normal to inspection Palpation (GI): Soft to palpation and Other GI palpation findings present (Nontender) Rectal Exam - Female: visual inspection normal General: Yes bladder normal to palpation External Female Exam: normal appearance of the urethra Speculum Exam - Vagina: normal appearance of the vagina, normal palpation and normal vaginal discharge Speculum Exam - Cervix: normal appearance of the cervix, normal palpation and Other cervical findings present (No polyp tissue found) Bimanual exam- vagina & uterus: normal bimanual exam, normal palpation, uterine size normal, bladder normal to palpation, normal palpation, uterine shape normal and non-tender Bimanual Exam- Adnexa, other: normal adnexae Neuro General: patient oriented x3 Results AMB Test Urine AMB Test Urine Negative Last Edit by Aliza Crowley LPN on 10/16/24 09:10 Results Reviewed Results Reviewed: Laboratory Last Values [facility]st Clinic Negative 10/16/24 09:10 [place] [address] Ultrasound Report Signed Patient: Natalie Miller MR#: [id number] : 1990 Acct:[id number] Age/Sex: 34 / F ADM Date: 10/02/24 Loc: HO.US Attending Dr: Bernadette Churchill CNM Ordering Physician: Bernadette Churchill CNM Date of Service: 10/02/24 Procedure(s): US pelvic and transvaginal Accession Number(s): [id number] cc: Bernadette Churchill CNM; Srikanth Stapleton [facility]~ CLINICAL HISTORY: N83.209 - Unspecified ovarian cyst, unspecified side Transabdominal and transvaginal pelvic ultrasound Comparison: None Findings: Uterus 10.4 x 4.4 x 6.0 cm. Endometrium 1.3 cm. No significant free fluid noted. Right ovary 2.2 x 2.2 x 2.4 cm. No focal abnormality. Left ovary 5.2 x 3.2 x 3.3 cm. 3.0 x 3.1 cm dermoid cyst adjacent to the ovary. This contains a large component of fat. 1.8 cm dominant follicle also noted. Impression: Left adnexal dermoid cyst Otherwise unremarkable This document has been electronically signed by: Skinny Palomares MD on 10/02/2024 22:22:51 Dictated By: Skinny Palomares MD Signed By: <Electronically signed by Skinny Palomares MD in OV> 10/02/242223 DD/ 21 TD/TT: 10/02/242221 Candles Pourer: Assessment & Plan Assessment & Plan (1) Dermoid cyst: Code(s): D36.9 - Benign neoplasm, unspecified site Category: Medical Plan Discussed: Ultrasound findings-3.1 cm left ovarian dermoid cyst. Counseled regarding findings of: Dermoid cyst- Some develop into premalignant or malignant tumors. Limitations of testing for diagnostic purposes. Further monitoring and evaluation is recommended with US, possible CT, or MRI study. Ca-125, Carbohydrate Antigen 19-9, & Carcinoembryonic Antigen labs will be ordered and referral to [facility] or general gynecology for MD care for possible surgical consult. Follow up in person for test results. All of her questions and concerns were addressed to the best of my ability and shared decision making. She is agreeable to the plan of care. Polypectomy not performed as tissue was not found at the cervical os today. This note is constructed using voice recognition software. While every effort has been made to ensure accuracy, terminal press operator errors may have been included. Orders: Orders MR pelvis wo/w con Today D36.9 - Benign neoplasm, unspecified site CA-125 Today D36.9 - Benign neoplasm, unspecified site, N83.299 - Other ovarian cyst, unspecified side Carcinoembryonic Antigen Today D36.9 - Benign neoplasm, unspecified site, N83.299 - Other ovarian cyst, unspecified side Carbohydrate Antigen 19-9 Today D36.9 - Benign neoplasm, unspecified site, N83.299 - Other ovarian cyst, unspecified side Referrals GUIDE DOG TRAINER Referral D36.9 - Benign neoplasm, unspecified site Coding Level of Care Code Est Pt Level 3 (03776) Diagnoses Dermoid cyst D36.9
== END 2024-10-16 10:03 | disposition home or self-care (01) ==
LOC: HO.HWS 08:51
PROVIDERS: PCP Nurse Practitioner Family; Visit Provider Advanced Practice Midwife
DX: D36.9 Benign neoplasm, unspecified site (principal)
CPT/HCPCS: 99213

== ENCOUNTER 2024-10-16 08:50 | Outpatient (REF) | payer OTHER, SELFPAY ==
[2024-10-16 11:18] LABS: Alanine Aminotransferase 38 U/L (0-31); Albumin Level 4.4 g/dL (3.5-5.0); Alkaline Phosphatase 76 U/L (39-117); Aspartate Amino Transferase 23 U/L (5-31); Carcinoembryonic Antigen < 1.73 ng/mL; Total Protein 7.1 g/dL (6.5-8.0)
[2024-10-17 09:34] LABS: CA-125 17 U/mL (<35)
== END 2024-10-16 08:51 | disposition home or self-care (01) ==
LOC: HO.LAB 08:50
PROVIDERS: PCP Nurse Practitioner Family; Visit Provider Advanced Practice Midwife
DX: D27.1 Benign neoplasm of left ovary (principal); E55.9 Vitamin D deficiency, unspecified; R74.01 Elevation of levels of liver transaminase levels; R73.01 Impaired fasting glucose; Z09 Encounter for follow-up examination after completed treatment for conditions other than malignant neoplasm
CPT/HCPCS: 36415; 80076; 82306; 82378; 82947; 86301; 86304

== ENCOUNTER 2024-12-10 09:30 | Outpatient (AMB) | payer OTHER, SELFPAY ==
--- NOTE | 2024-12-10 09:37 | MHC.OFFVIS ---
Vital Signs 12/10/24 09:39 Height 5 ft 7 in Weight 233 lb 11.04 oz BMI 36.6 Intake Visit Reasons: genetic testing results, Intake Note: Patient is seen in office for genetic testing results. 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 She reports a family history of breast cancer in her paternal grandmother who was 72 but was diagnosed with stage IV breast cancer at that point. She is uncertain about her mother because her mother refuses to be evaluated by a physician in his now undergone breast evaluation. The patient denies any current breast symptoms other than some occasional stinging which occurs randomly in both breasts does not seem to be related to her cycle. Menarche was the age of 12, she is with 2 induced ABs, her last menstrual period was 09/10/2024. Cycles have been heavy with clots and she was recently in determined to have a cervical polyp which will be removed. She is also found to have a teratoma in the left ovary which is being evaluated by ultrasound. No other members of her family have undergone genetic testing. She has never undergone mammogram and she has had no previous breast biopsies or other breast surgery. She has no known Ashkenazi Jainism heritage. She underwent genetic testing on 09/27/2024. Results revealed no clinically significant mutation and no variance of unknown significance. Her breast cancer risk score for her remaining lifetime was calculated at 10.1%. Tyrer-Cuzick remaining lifetime risk of breast cancer was 17% placing her below the threshold for high-risk. A copy of the report was provided to the patient. 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 Genetic testing revealed no clinically significant mutations and no variance of unknown significance. Her breast cancer risk score was calculated at 10.1% placing her below the threshold for high-risk. She was provided with a copy of the report. She should continue with routine breast cancer screening and should follow up as needed. Coding Level of Care Code Est Pt Level 3 (51392) Diagnoses Family history of breast cancer Z80.3
[2024-12-10 09:39] VITALS: BMI 36.6
== END 2024-12-10 09:51 | disposition home or self-care (01) ==
PROVIDERS: PCP Nurse Practitioner Family; Visit Provider Surgery
DX: Z80.3 Family history of malignant neoplasm of breast (principal)
CPT/HCPCS: 99213

== ENCOUNTER → 2024-12-11 11:32 | Outpatient (BNV) | payer OTHER, SELFPAY | PROVIDERS: PCP Nurse Practitioner Family; Visit Provider Radiology Diagnostic Radiology | DX: D27.1 Benign neoplasm of left ovary (principal) | CPT/HCPCS: 72197 ==

== ENCOUNTER 2024-12-11 11:33 | Outpatient (REF) | payer OTHER, SELFPAY ==
--- NOTE | ~2024-12-11 | MR_ITS ---
EXAMINATION: MR PELVIS WITHOUT AND WITH CONTRAST CLINICAL INFORMATION: 3.1 cm dermoid, left adnexa. COMPARISON: Correlated to pelvic ultrasound dated October 02, 2024. TECHNIQUE: Multiplanar, multisequence MRI pelvis without and following IV contrast demonstration. Total of 10 cc gadolinium based (Gadavist) given without reported immediate complications. FINDINGS: Uterus measures 9 x 6 x 5 cm in anteversion flexion position slightly to the right. There is normal homogeneous enhancement of the myometrium. The junctional zone measures 7 mm. Cervix measures 3 cm with small nabothian cysts. There is a 3.6 x 2.6 x 3.5 cm mixed fluid signal characteristic nonenhancing lesion with drop of the signal on the fat-saturated sequence centered in the left adnexa. Multiple scattered follicles in both ovaries. No lymphadenopathy. No ascites. No intestinal obstruction pattern. Nonspecific prominent inguinal lymph nodes. No gross bone marrow signal abnormality. There is an intraosseous hemangioma at L3. There is a mild levoconvex curvature of the lumbar spine which could be positional. Appendix is normal. No hydronephrosis in either kidney. MR/MR pelvis wo/w con IMPRESSION: 3.6 x 2.5 cm dermoid, left adnexa. Electronically signed by: Jarred Gomez MD 12/11/2024 01:30 PM EDT
== END 2024-12-11 11:34 | disposition home or self-care (01) ==
LOC: HO.MRI 11:33
PROVIDERS: PCP Nurse Practitioner Family; Visit Provider Advanced Practice Midwife
DX: D36.9 Benign neoplasm, unspecified site (principal)
CPT/HCPCS: 72197; A9585

== ENCOUNTER 2025-01-02 10:45 | Outpatient (AMB) | payer OTHER, SELFPAY ==
--- NOTE | 2025-01-02 10:48 | MHC.OFFVIS ---
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 She reports discomfort on her left side when exercising in certain positions. She has a surgical consult scheduled at [facility] 01/08/2025. 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, 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 Current occupational exposures/hazards: No Cognitive needs: No Hearing needs: No Vision needs: Yes Female Reproductive History Menstrual Age of Menarche: 12 Date of last menstrual period: 01/02/25 Review of Systems Const All systems reviewed & are unremarkable except as noted in HPI and below Endo Reports no additional complaints Physical Exam Vital Signs: Last Vital Signs BP 110/70 01/02/25 10:51 BMI result Body Mass Index 36.5 Const General: cooperative, healthy appearing and no acute distress Psych Appearance: well kempt Attitude: cooperative Thought process: Normal thought process present Results Reviewed Results Reviewed: [address] [address] Magnetic Resonance Report Signed Patient: PaulNatalie Tammie MR#: [id number] : 1990 Acct:[id number] Age/Sex: 34 / F ADM Date: 12/11/24 Loc: HO.MRI Attending Dr: Bernadette Churchill CNM Ordering Physician: Bernadette Churchill CNM Date of Service: 12/11/24 Procedure(s): MR pelvis wo/w con Accession Number(s): [id number] cc: Bernadette Churchill CNM; Srikanth Stapleton DATA COLLECTION SPECIALIST~ Reason for Exam: D36.9 - Benign neoplasm, unspecified site EXAMINATION: MR PELVIS WITHOUT AND WITH CONTRAST CLINICAL INFORMATION: 3.1 cm dermoid, left adnexa. COMPARISON: Correlated to pelvic ultrasound dated October 02, 2024. TECHNIQUE: Multiplanar, multisequence MRI pelvis without and following IV contrast demonstration. Total of 10 cc gadolinium based (Gadavist) given without reported immediate complications. FINDINGS: Uterus measures 9 x 6 x 5 cm in anteversion flexion position slightly to the right. There is normal homogeneous enhancement of the myometrium. The junctional zone measures 7 mm. Cervix measures 3 cm with small nabothian cysts. There is a 3.6 x 2.6 x 3.5 cm mixed fluid signal characteristic nonenhancing lesion with drop of the signal on the fat-saturated sequence centered in the left adnexa. Multiple scattered follicles in both ovaries. No lymphadenopathy. No ascites. No intestinal obstruction pattern. Nonspecific prominent inguinal lymph nodes. No gross bone marrow signal abnormality. There is an intraosseous hemangioma at L3. There is a mild levoconvex curvature of the lumbar spine which could be positional. Appendix is normal. No hydronephrosis in either kidney. MR/MR pelvis wo/w con IMPRESSION: 3.6 x 2.5 cm dermoid, left adnexa. Electronically signed by: Jarred Gomez MD 12/11/2024 01:30 PM EDT Dictated By: Jarred Lopez MD Signed By: <Electronically signed by Jarred Zurita MD in OV> 12/11/24 1330 DD/ 1142 TD/TT: 12/11/24 1202 Blockers Skiver: Assessment & Plan Assessment & Plan (1) Dermoid cyst: Code(s): D36.9 - Benign neoplasm, unspecified site Category: Medical Plan Discussed: MRI findings- IMPRESSION: 3.6 x 2.5 cm dermoid, left adenexa. Dermoid progression, keep consult appointment next week. Annual lead software architect exam scheduled August 2025. The patient expressed understanding and agreement with the plan of care. All of her questions and concerns were addressed to the best of my ability. This note is constructed using voice recognition software. While every effort has been made to ensure accuracy, supply chain tech errors may have been included. Part her me to stand vulva the patient implant and cough syrup at lunch all is well. Coding Level of Care Code Est Pt Level 3 (34967) Diagnoses Dermoid cyst D36.9
[2025-01-02 10:51] VITALS: BP 110/70; BMI 36.5
== END 2025-01-02 13:09 | disposition home or self-care (01) ==
LOC: HO.HWS 10:45
PROVIDERS: PCP Nurse Practitioner Family; Visit Provider Advanced Practice Midwife
DX: D36.9 Benign neoplasm, unspecified site (principal)
CPT/HCPCS: 99213